=== PATIENT | male | born 1970 | race Caucasian/White ===

== ENCOUNTER 2017-02-04 04:16 | Observation (INO) | payer OTHER ==
[2017-02-01 10:44] LABS: HEMATOCRIT 43.4 % (40.0-51.0); HEMOGLOBIN 15.8 g/dL (13.6-17.8)
[2017-02-01 10:48] LABS: BUN (BLOOD UREA NITROGEN) 8 MG/DL (6-23); CHLORIDE, SERUM 105 MMOL/L (96-112); CO2 (CARBON DIOXIDE) 24 MMOL/L (24-34); CREATININE 0.91 MG/DL (0.70-1.30); GFR AFRICAN AMERICAN 116 ML/MIN (>=60); GFR NON AFRICAN AMERICAN 100 ML/MIN (>=60); POTASSIUM, SERUM 4.5 MMOL/L (3.5-5.3); SODIUM, SERUM 139 MMOL/L (135-148)
[2017-02-01 10:49] LABS: GLUCOSE, SERUM 130 MG/DL (60-99)
--- NOTE | ~2017-02-04 | OP ---
Record Of Operation [facility] [address] [place]. [address] NAME: WALTER FARRELL : 68 STATUS : DIS Ramona PAT#: [id number] AGE: 46 ADM/REG DATE : 02/04/17 MR#: [id number] REPORT SERV DATE: 02/07/17 DICTATED BY: BINH SMYTH II DATE: 02/07/17 REPORT STATUS : Draft TRANSCRIBED BY: MODL DATE: 02/07/17 DATE OF PROCEDURE: 02/04/2017 PREOPERATIVE DIAGNOSES: 1. Adjacent segment degeneration, C4-5, C5-6. 2. Right upper extremity radiculopathy. POSTOPERATIVE DIAGNOSES: 1. Adjacent segment degeneration, C4-5, C5-6. 2. Right upper extremity radiculopathy. PROCEDURES: 1. C4-5, C5-6 anterior interbody arthrodesis. 2. Application of prosthetic devices at C4-5, C5-6. 3. Anterior instrumentation, C4-5, C5-6. 4. Use of bone marrow aspirate and allograft substitute. 5. Use of the microscope. SURGEON: Binh Smyth M.D. FLUIDS REPLACED: 1600 mL LR. ESTIMATED BLOOD LOSS: 30 mL. DRAINS: One drain. COMPLICATIONS: None. ANTIBIOTIC: Preoperatively. IMPLANTS: Alphatec. PREOPERATIVE HISTORY: This is a very friendly 46-year-old gentleman, who is well known to me from the past. He underwent surgery at C6-7 related to work injury. He has done reasonably well since that time. Unfortunately, he has also had lumbar issues which have sidelined him from work. He reports significant neck pain, but primarily pain radiating from the shoulder blade down into the arm and into the dorsal aspects of the forearm. We discussed the pros and cons of continuing nonoperative care versus surgery. He had failed conservative care. We discussed the surgery itself as well as the risks and the benefits, and he wished to proceed. DESCRIPTION OF PROCEDURE: After informed consent was obtained, the patient was brought to the operating room at his request and general anesthesia achieved. He was placed in the supine position, and the neck and iliac crest prepped and draped in a sterile fashion. The 5 mL of bone marrow were aspirated from the iliac crest followed by a right-sided longitudinal incision. The interval was explored and the deep cervical fascia incised. The Record Of Operation [facility] [address] [place]. [address] NAME: WALTER FARRELL : 68 STATUS : DIS Ramona PAT#: [id number] AGE: 46 ADM/REG DATE : 02/04/17 MR#: [id number] REPORT SERV DATE: 02/07/17 DICTATED BY: BINH SMYTH II DATE: 02/07/17 REPORT STATUS : Draft TRANSCRIBED BY: NIYAH DATE: 02/07/17 subperiosteal exposure was completed from C4 to C6 and the [employer] retractors placed underneath the longus colli muscles. The Madison pins were placed followed by use of the microscope. Under microscopic visualization, the C5-6 disk was now removed including the endplates. The curettes and the high-speed bur were used to create parallel endplates. The posterolateral osteophytes were now removed with a high-speed bur and the Kerrison rongeurs including removal of the posterior longitudinal ligament. The significant compression of the exiting nerve roots was now alleviated with the Kerrison rongeurs further. The nerve hook was now easily passed out bilateral foramen. Next, the prosthetic device was trialed and chosen and placed at C5-6. This contained allograft substitute and bone marrow aspirate. Excellent fit was obtained. Next, the C4-5 level was addressed in a similar manner with diskectomy and endplate preparation. The disk material was now removed including the cartilaginous portion of the endplate. Punctate bleeding bone was identified on both endplates. The posterior ligament was now removed including removal of the posterolateral osteophytes. The prosthetic device was now placed at C4-5. Following removal of the Madison pins the anterior fixation device was placed with two screws in the C4, C5, and C6. Multiplanar imaging confirmed acceptable placement of the implants. A deep drain was placed secondary to mild cancellous bone bleeding. A standard closure was performed and standard dressings applied. The patient then extubated and transferred to PACU in stable condition. SCOTT/NIYAH Binh Smyth II, M.D. / [id number] CC: Jocelyne Yin II, M.D. Stephen Dreskin, M.D.
[~2017-02-04 04:16] MED LIST: *DENIES; ATEN25 PO; DIL2TAB PO; FLEX PO; LIDODERM TOP; MOBIC7.5 PO; NEUR300 PO; NORCO1 TA1 PO; PCET PO; PERCOCET1 TA4 PO; PR25 PO; V5 PO; ZANAFLEX 4 MG TA4 MG PO
[2017-02-05] MEDS ORDERED: MSCONTIN PO (07:54)
[2017-02-05] MEDS ORDERED: DIL4TAB PO (07:55)
[2017-02-05] MEDS ORDERED: V5 PO (07:55)
== END 2017-02-05 11:23 | disposition home or self-care (01) ==
LOC: SDC 04:16 → 3SO 09:15
PROVIDERS: Orthopaedic Surgery
PROC: 07DR3ZX Extraction of Iliac Bone Marrow, Percutaneous Approach, Diagnostic (ICD-10-PCS; 2017-02-04)
PROC: 0RG20A0 Fusion of 2 or more Cervical Vertebral Joints with Interbody Fusion Device, Anterior Approach, Anterior Column, Open Approach (ICD-10-PCS; principal; 2017-02-04 05:45)
PROC: 0RG20K0 Fusion of 2 or more Cervical Vertebral Joints with Nonautologous Tissue Substitute, Anterior Approach, Anterior Column, Open Approach (ICD-10-PCS; 2017-02-04 05:45)
DX: M50.121 Cervical disc disorder at C4-C5 level with radiculopathy (principal); M50.122 Cervical disc disorder at C5-C6 level with radiculopathy; G47.33 Obstructive sleep apnea (adult) (pediatric); H53.8 Other visual disturbances; Z88.5 Allergy status to narcotic agent; Z88.6 Allergy status to analgesic agent; Z90.49 Acquired absence of other specified parts of digestive tract; Z88.8 Allergy status to other drugs, medicaments and biological substances
CPT/HCPCS: 80048; 82962; 85014; 85018; 87641; 88304; 88311; 93005; 96374; 96375; 96376; A9270-GY; C1713; G0378; J0690; J1170; J2250; J2370; J2405; J2710; J3010